=== PATIENT | male | born 1960 ===

== ENCOUNTER 2021-10-21 11:11 | Inpatient (IN) | payer MEDICAID ==
[2021-10-21] MEDS ORDERED: MELATONIN 5 MG TAB PO PRN (20:37)
[2021-10-21] MEDS: GABAPENTIN 300 MG CAP PO SCH ×2 (22:07→22:08)
[2021-10-21] MEDS: traZODone 50 MG TAB PO SCH (22:08)
[2021-10-21 23:15] LABS: Basophils % (Auto) 0.4 % (0.0-1.8); Eosinophils % (Auto) 0.7 % (0.0-4.3); Hematocrit 40.2 % (35.5-45.6); Hemoglobin 13.6 gm/dl (11.8-15.2); Lymphocytes # (Auto) 0.8 K/mm3 (1.2-5.4); Lymphocytes % (Auto) 17.1 % (13.4-35.0); Mean Corpuscular HGB Conc 34 % (32-34); Mean Corpuscular Volume 105 fl (84-94); Monocytes # (Auto) 0.6 K/mm3 (0.0-0.8); Monocytes % (Auto) 13.2 % (0.0-7.3); Platelet Count 201 K/mm3 (140-440); Red Blood Count 3.82 M/mm3 (3.65-5.03); Red Cell Distribution Width 15.7 % (13.2-15.2)
[2021-10-21 23:40] LABS: Alanine Aminotransferase 22 units/L (7-56); Albumin 4.2 g/dL (3.9-5); BUN/Creatinine Ratio 23; Blood Urea Nitrogen 23 mg/dL (9-20); Calcium 9.7 mg/dL (8.4-10.2); Chol/HDL Ratio 2.08 %; HDL Cholesterol 91 mg/dL (40-59); Hemolysis Index 3; LDL Cholesterol,Direct 87 mg/dL (50-130)
[2021-10-22] MEDS: GABAPENTIN 300 MG CAP PO SCH ×3 (08:26→21:51)
--- NOTE | 2021-10-22 08:49 | History and Physical Report ---
GP History & Physical - History of Present Illness Date of admission: 10/21/21 Date of Examination: 10/22/21 Reason for Admission: Danger to self, Failure of Outpatient Treatment, Severe anxiety/depression History of Present Illness: HPI: Per report pt present to ER with c/o of LT side chest pain and increased depression, ETOH abuse and SI with plan to get a gun and shot himself. The patient was seen today. He is calm and cooperative. He says he was admitted for "saying something stupid that I didn't think they would take seriously." The patient says he needed pain medication and told them he might as well shoot himself. He says "I would never do that and have never thought about doing anything like that." He does report depression at times. He denies any psych history in the past or being on any psych meds. He says he drinks about 2 - 24 ox of beer daily. The patient denies any illicit drug use. He says he was homeless for two weeks, but now has a roof over his head. The patient says he lives with [place] people and has home health. He says "they are nicer to me than my family." The patient says he has to be in [employer] on the 28 of [place]. He says "If I don't go they will put out a Bench Warrant." He denies hallucinations. PAST PSYCHIATRIC HISTORY: Diagnoses: Denies Suicide attempts or Self-harm behavior: Denies Prior psychiatric hospitalizations: Denies Substance Abuse history: alcohol Previous psychiatric medications tried: Denies Outpatient treatment: Denies PAST MEDICAL HISTORY: None reported Family Psychiatric History: None reported or documented SOCIAL HISTORY Marital Status: Living Arrangements: with another family Employment Status: Disabled Access to guns/weapons: Denies Education: History of Abuse: Denies Legal History: Denies REVIEW OF SYSTEMS Constitutional: Negative for weight loss ENT: Negative for stridor Respiratory: Negative for cough or hemoptysis All other systems reviewed and are negative MENTAL STATUS EXAMINATION General Appearance and Behavior: Age appropriate, wearing appropriate clothes, cooperative, polite with questioning, good eye contact Cooperation: cooperative Psychomotor Behavior: Psychomotor normal Mood: Depressed Affect and affective range: congruent with stated affect Thought Process: goal directed Thought Content: None Speech: Normal volume, Regular rate and rhythm Suicidal Ideation: Denies Homicidal Ideation: Denies Hallucination: Denies Delusions: None elicited Impulse Control: Limited Insight and Judgment: Limited Memory: Intact Attention: attentive Orientation: Alert and oriented Diagnoses: Major Depressive Disorder Alcohol Dependence Treatment Plan Patient admitted for inpatient psychiatric evaluation, medication adjustment and close monitoring The patient's behavior, mood, sleep and appetite will be closely monitored. Patient enrolled in individual and group therapeutic sessions and encouraged to attend. Patient provided with a safe and structured environment. Patient's physical health needs will be addressed by the Hospitalist. Hospitalist Consulted Labs including CBC, CMP, Lipid profile and Hemoglobin A1C levels ordered for baseline reference Social Assessment will be completed and the Pit Recorder will work with patient and family to ensure a suitable and safe disposition Medication adjustment will be made as clinically indicated Lexapro 5mg po daily Trazodone 50mg po qhs Folic 1mg po daily Multivit daily CIWA Usual Wellness [facility] The patient agreed on the treatment plan, understood the risk, benefit, alternative treatment, potential consequence of no treatment, and gave informed consent. Estimated days: 7 Post hospital care: primary care provider, psychiatric provider Case staffed with Dr. Bermudez Legal Status: Voluntary Reaction to Hospitalization: Accepting Medications and Allergies Allergies Allergy/AdvReac Type Severity Reaction Status Date / Time No Known Allergies Allergy Unverified 10/21/21 11:37 Home Medications Medication Instructions Recorded Confirmed Last Taken Type Gabapentin [Neurontin] 600 mg PO TID 10/21/21 10/21/21 Unknown History Melatonin [Melatonin 1MG TAB] 1 mg PO QHS 10/21/21 10/21/21 Unknown History amLODIPine [Norvasc] 10 mg PO DAILY 10/21/21 10/21/21 Unknown History Active Meds: Active Medications Gabapentin (Gabapentin 300 Mg Cap) 600 mg PO TID [facility] Last Admin: 10/22/21 08:26 Dose: 600 mg Melatonin (Melatonin 5 Mg Tab) 5 mg PO QHS PRN PRN Reason: Sleep Trazodone HCl (Trazodone 50 Mg Tab) 50 mg PO QHS [facility] Last Admin: 10/21/21 22:08 Dose: 50 mg Results - Results Labs/Vitals: Laboratory Last Values WBC 4.5 K/mm3 (4.5-11.0) 10/21/21 22:38 RBC 3.82 M/mm3 (3.65-5.03) 10/21/21 22:38 Hgb 13.6 gm/dl (11.8-15.2) 10/21/21:38 Hct 40.2 % (35.5-45.6) 10/21/21 22: MCV 105 fl (84-94) H 10/21/21 22:38 MCH 36 pg (28-32) H 10/21/21: MCHC 34 % (32-34) 10/21/21: RDW 15.7 % (13.2-15.2) H 10/21/21 22:38 Plt Count 201 K/mm3 (140-440) 10/21/21: Lymph % (Auto) 17.1 % (13.4-35.0) 10/21/21: [place] % (Auto) 13.2 % (0.0-7.3) H 10/21/21: Eos % (Auto) 0.7 % (0.0-4.3) 10/21/21: Baso % (Auto) 0.4 % (0.0-1.8) 10/21/21: Lymph # (Auto) 0.8 K/mm3 (1.2-5.4) L 10/21/21: [place] # (Auto) 0.6 K/mm3 (0.0-0.8) 10/21/21: Eos # (Auto) 0.0 K/mm3 (0.0-0.4) 10/21/21: Baso # (Auto) 0.0 K/mm3 (0.0-0.1) 10/21/21 22: Seg Neutrophils % 68.6 % (40.0-70.0) 10/21/21: Seg Neutrophils # 3.1 K/mm3 (1.8-7.7) 10/21/21 22:38 Sodium 136 mmol/L (137-145) L 10/21/21: Potassium 4.0 mmol/L (3.6-5.0) 10/21/21 22: Chloride 95.9 mmol/L (98-107) L 10/21/21: Carbon Dioxide 28 mmol/L (22-30) 10/21/21 22:38 Anion Gap 16 mmol/L 10/21/21 22:38 BUN 23 mg/dL (9-20) H 10/21/21 22:38 Creatinine 1.0 mg/dL (0.8-1.3) 10/21/21 22:38 Estimated GFR > 60 ml/min 10/21/21 22:38 BUN/Creatinine Ratio 23 % 10/21/21 22:38 Glucose 93 mg/dL (75-100) 10/21/21 22:38 Hemoglobin A1c 4.9 % (4-6) 10/21/21 22:38 Calcium 9.7 mg/dL (8.4-10.2) 10/21/21 22:38 Total Bilirubin 1.00 mg/dL (0.1-1.2) 10/21/21 22:38 AST 42 units/L (5-40) H 10/21/21 22:38 ALT 22 units/L (7-56) 10/21/21 22:38 Alkaline Phosphatase 260 units/L (35-129) H 10/21/21 22:38 Total Protein 7.1 g/dL (6.3-8.2) 10/21/21 22:38 Albumin 4.2 g/dL (3.9-5) 10/21/21 22:38 Albumin/Globulin Ratio 1.4 % 10/21/21 22:38 Triglycerides 88 mg/dL (2-149) 10/21/21 22:38 Cholesterol 190 mg/dL (50-199) 10/21/21 22:38 LDL Cholesterol Direct 87 mg/dL (50-130) 10/21/21 22:38 HDL Cholesterol 91 mg/dL (40-59) H 10/21/21 22:38 Cholesterol/HDL Ratio 2.08 % 10/21/21 22:38 TSH 3.450 mlU/mL (0.270-4.200) 10/21/21 22:38 Last Vital Signs Temp 97.6 F 10/22/21 07:54 Pulse 84 10/22/21 07:54 Resp 18 10/22/21 07:54 BP 110/83 10/22/21 07:54 Pulse Ox 99 10/22/21 07:54 Physical Examination - Constitutional Vitals: Vital Signs Temp Pulse Resp BP Pulse Ox 97.6 F 84 18 110/83 99 10/22/21 07:54 09/13/22 07:54 10/22/21 07:54 10/22/21 07:54 10/22/21 07:54 Temperature -Last 24 Hours Temperature 97.6 F Temperature 97.9 F Temperature 98.3 F Mental Status Exam - Vital signs Last Vital Signs Temp 97.6 F 10/22/21 07:54 Pulse 84 10/22/21 07:54 Resp 18 10/22/21 07:54 BP 110/83 10/22/21 07:54 Pulse Ox 99 10/22/21 07:54 Physician Certification - Certification Statement Physician Certification Statement: This is an acknowledgement statement that EMANUEL KEN is a 61 year old M who requires inpatient psychiatric admission for treatment which could reasonably be expected to improve the patient's condition for Estimated period of time patient will need to remain in the hospital: [ ] Plan for post-hospital care: [ ]
[2021-10-22] MEDS: amLODIPine 10 MG TAB PO SCH (10:05)
[2021-10-22] MEDS: ESCITALOPRAM 10 MG TAB PO SCH (10:06)
--- NOTE | 2021-10-22 10:59 | Consultation ---
History of Present Illness - Reason for Consult Consult date: 10/22/21 Medical Management Requesting physician: ANKIT HINSON - History of Present Illness 61 YO Male with Vascular Dementia with Behavioral Disturbance, Cerebral Atherosclerosis, Bipolar Disorder, HTN, DM, BPH, Mild Intermittent Asthma, Schizophrenia, PTSD admitted to [facility] for psychiatric stabilization. Consult placed by Dr. Hinson for medical management. Pt seen and evaluated in the recreation room. Patient appears to be at baseline level of cognition and function. Medications and Allergies Allergies Allergy/AdvReac Type Severity Reaction Status Date / Time No Known Allergies Allergy Unverified 10/21/21 11:37 Home Medications Medication Instructions Recorded Confirmed Last Taken Type Gabapentin [Neurontin] 600 mg PO TID 10/21/21 10/21/21 Unknown History Melatonin [Melatonin 1MG TAB] 1 mg PO QHS 10/21/21 10/21/21 Unknown History amLODIPine [Norvasc] 10 mg PO DAILY 10/21/21 10/21/21 Unknown History Active Meds: Active Medications Amlodipine Besylate (Amlodipine 10 Mg Tab) 10 mg PO DAILY [facility] Last Admin: 10/22/21 10:05 Dose: 10 mg Escitalopram Oxalate (Escitalopram 10 Mg Tab) 5 mg PO QDAY [facility] Last Admin: 10/22/21 10:06 Dose: 5 mg Gabapentin (Gabapentin 300 Mg Cap) 600 mg PO TID [facility] Last Admin: 10/22/21 08:26 Dose: 600 mg Melatonin (Melatonin 5 Mg Tab) 5 mg PO QHS PRN PRN Reason: Sleep Trazodone HCl (Trazodone 50 Mg Tab) 50 mg PO QHS [facility] Last Admin: 10/21/21 22:08 Dose: 50 mg Exam - Constitutional Vitals: Temp Pulse Resp BP Pulse Ox 97.6 F 84 18 110/83 99 10/22/21 07:54 10/22/21 10:05 10/22/21 07:54 10/22/21 10:05 10/22/21 07:54 Results - Labs CBC & Chem 7: 10/21/21 22:38 10/21/21 22:38 Labs: Abnormal lab results 10/21/21 10/21/21 Range/Units 22:38 22:38 MCV 105 H (84-94) fl MCH 36 H (28-32) pg RDW 15.7 H (13.2-15.2) % [place] % (Auto) 13.2 H (0.0-7.3) % Lymph # (Auto) 0.8 L (1.2-5.4) K/mm3 Sodium 136 L (137-145) mmol/L Chloride 95.9 L (98-107) mmol/L BUN 23 H (9-20) mg/dL AST 42 H (5-40) units/L Alkaline Phosphatase 260 H (35-129) units/L HDL Cholesterol 91 H (40-59) mg/dL
[2021-10-22] MEDS ORDERED: NON-FORMULARY EACH (Gabapentin [Neurontin] 600 MG Tablet) PO SCH (14:00)
[2021-10-22] MEDS: traZODone 50 MG TAB PO SCH (21:50)
[2021-10-22] MEDS ORDERED: MELATONIN 1 MG PO SCH (22:00)
[2021-10-23] MEDS: GABAPENTIN 300 MG CAP PO SCH ×3 (09:10→20:24)
[2021-10-23] MEDS: amLODIPine 10 MG TAB PO SCH (10:11)
[2021-10-23] MEDS: ESCITALOPRAM 10 MG TAB PO SCH (10:11)
--- NOTE | 2021-10-23 10:59 | Progress Note ---
Subjective Date of service: 10/23/21 Principal diagnosis: MDD, alcohol dependence Subjective Comment: The patient was seen today. He is complaining of neuropathy in his legs. He says mentally he feels okay. He denies SI/HI or hallucinations. REVIEW OF SYSTEMS Constitutional: Negative for weight loss ENT: Negative for stridor Respiratory: Negative for cough or hemoptysis All other systems reviewed and are negative MENTAL STATUS EXAMINATION General Appearance and Behavior: Age appropriate, wearing appropriate clothes, cooperative, polite with questioning, good eye contact Cooperation: cooperative Psychomotor Behavior: Psychomotor normal Mood: Depressed Affect and affective range: congruent with stated affect Thought Process: goal directed Thought Content: None Speech: Normal volume, Regular rate and rhythm Suicidal Ideation: Denies Homicidal Ideation: Denies Hallucination: Denies Delusions: None elicited Impulse Control: Limited Insight and Judgment: Limited Memory: Intact Attention: attentive Orientation: Alert and oriented Diagnoses: Major Depressive Disorder Alcohol Dependence Treatment Plan Patient admitted for inpatient psychiatric evaluation, medication adjustment and close monitoring The patient's behavior, mood, sleep and appetite will be closely monitored. Patient enrolled in individual and group therapeutic sessions and encouraged to attend. Patient provided with a safe and structured environment. Patient's physical health needs will be addressed by the Hospitalist. Hospitalist Consulted Labs including CBC, CMP, Lipid profile and Hemoglobin A1C levels ordered for baseline reference Social Assessment will be completed and the Fast Food Cashier will work with patient and family to ensure a suitable and safe disposition Medication adjustment will be made as clinically indicated Continue medications Usual Wellness [facility] The patient agreed on the treatment plan, understood the risk, benefit, altern ative treatment, potential consequence of no treatment, and gave informed consent. Estimated days: 7 Post hospital care: primary care provider, psychiatric provider Case staffed with Dr. Bermudez Medications and Allergies Allergies Allergy/AdvReac Type Severity Reaction Status Date / Time No Known Allergies Allergy Unverified 10/21/21 11:37 Home Medications Medication Instructions Recorded Confirmed Last Taken Type Gabapentin [Neurontin] 600 mg PO TID 10/21/21 10/21/21 Unknown History Melatonin [Melatonin 1MG TAB] 1 mg PO QHS 10/21/21 10/21/21 Unknown History amLODIPine [Norvasc] 10 mg PO DAILY 10/21/21 10/21/21 Unknown History Active Meds: Active Medications Amlodipine Besylate (Amlodipine 10 Mg Tab) 10 mg PO DAILY [facility] Last Admin: 10/23/21 10:11 Dose: 10 mg Escitalopram Oxalate (Escitalopram 10 Mg Tab) 5 mg PO QDAY [facility] Last Admin: 10/23/21 10:11 Dose: 5 mg Gabapentin (Gabapentin 300 Mg Cap) 600 mg PO TID [facility] Last Admin: 10/23/21 09:10 Dose: 600 mg Melatonin (Melatonin 5 Mg Tab) 5 mg PO QHS PRN PRN Reason: Sleep Trazodone HCl (Trazodone 50 Mg Tab) 50 mg PO QHS [facility] Last Admin: 10/22/21 21:50 Dose: 50 mg Results - Results Labs/Vitals: Laboratory Last Values WBC 4.5 K/mm3 (4.5-11.0) 10/21/21 22:38 RBC 3.82 M/mm3 (3.65-5.03) 10/21/21 22:38 Hgb 13.6 gm/dl (11.8-15.2) 10/21/21 22:38 Hct 40.2 % (35.5-45.6) 10/21/21 22:38 MCV 105 fl (84-94) H 10/21/21 22:38 MCH 36 pg (28-32) H 10/21/21 22:38 MCHC 34 % (32-34) 10/21/21 22:38 RDW 15.7 % (13.2-15.2) H 10/21/21 22:38 Plt Count 201 K/mm3 (140-440) 10/21/21 22:38 Lymph % (Auto) 17.1 % (13.4-35.0) 10/21/21 22:38 [place] % (Auto) 13.2 % (0.0-7.3) H 10/21/21 22:38 Eos % (Auto) 0.7 % (0.0-4.3) 10/21/21 22:38 Baso % (Auto) 0.4 % (0.0-1.8) 10/21/21 22:38 Lymph # (Auto) 0.8 K/mm3 (1.2-5.4) L 10/21/21 22:38 [place] # (Auto) 0.6 K/mm3 (0.0-0.8) 10/21/21 22:38 Eos # (Auto) 0.0 K/mm3 (0.0-0.4) 10/21/21 22:38 Baso # (Auto) 0.0 K/mm3 (0.0-0.1) 10/21/21 22:38 Seg Neutrophils % 68.6 % (40.0-70.0) 10/21/21 22:38 Seg Neutrophils # 3.1 K/mm3 (1.8-7.7) 10/21/21 22:38 Sodium 136 mmol/L (137-145) L 10/21/21 22:38 Potassium 4.0 mmol/L (3.6-5.0) 10/21/21 22:38 Chloride 95.9 mmol/L (98-107) L 10/21/21 22:38 Carbon Dioxide 28 mmol/L (22-30) 10/21/21 22:38 Anion Gap 16 mmol/L 10/21/21 22:38 BUN 23 mg/dL (9-20) H 10/21/21 22:38 Creatinine 1.0 mg/dL (0.8-1.3) 10/21/21 22:38 Estimated GFR > 60 ml/min 10/21/21 22:38 BUN/Creatinine Ratio 23 % 10/21/21 22:38 Glucose 93 mg/dL (75-100) 10/21/21 22:38 Hemoglobin A1c 4.9 % (4-6) 10/21/21 22:38 Calcium 9.7 mg/dL (8.4-10.2) 10/21/21 22:38 Total Bilirubin 1.00 mg/dL (0.1-1.2) 10/21/21 22:38 AST 42 units/L (5-40) H 10/21/21 22:38 ALT 22 units/L (7-56) 10/21/21 22:38 Alkaline Phosphatase 260 units/L (35-129) H 10/21/21 22:38 Total Protein 7.1 g/dL (6.3-8.2) 10/21/21 22:38 Albumin 4.2 g/dL (3.9-5) 10/21/21 22:38 Albumin/Globulin Ratio 1.4 % 10/21/21 22:38 Triglycerides 88 mg/dL (2-149) 10/21/21 22:38 Cholesterol 190 mg/dL (50-199) 10/21/21 22:38 LDL Cholesterol Direct 87 mg/dL (50-130) 10/21/21 22:38 HDL Cholesterol 91 mg/dL (40-59) H 10/21/21 22:38 Cholesterol/HDL Ratio 2.08 % 10/21/21 22:38 TSH 3.450 mlU/mL (0.270-4.200) 10/21/21 22:38 Last Vital Signs Temp 98.5 F 10/22/21 19:45 Pulse 54 L 10/23/21 10:11 Resp 18 10/22/21 19:45 BP 136/78 10/23/21 10:11 Pulse Ox 97 10/22/21 19:45
[2021-10-23] MEDS: traZODone 50 MG TAB PO SCH (21:25)
[2021-10-24] MEDS: GABAPENTIN 300 MG CAP PO SCH ×3 (10:33→21:25)
[2021-10-24] MEDS: ESCITALOPRAM 10 MG TAB PO SCH (10:34)
[2021-10-24] MEDS: amLODIPine 10 MG TAB PO SCH (10:35)
--- NOTE | 2021-10-24 11:56 | Progress Note ---
Subjective Date of service: 10/24/21 Principal diagnosis: MDD, alcohol dependence Subjective Comment: The patient was seen today. He says he is doing okay. The patient says he slept well and his appetite is good. He denies SI/HI or hallucinations. THe patient will discharge tomorrow if night uneventful. Staff says the patient is complaining of leg pain and would like tylenol or Ibuprofen. REVIEW OF SYSTEMS Constitutional: Negative for weight loss ENT: Negative for stridor Respiratory: Negative for cough or hemoptysis All other systems reviewed and are negative MENTAL STATUS EXAMINATION General Appearance and Behavior: Age appropriate, wearing appropriate clothes, cooperative, polite with questioning, good eye contact Cooperation: cooperative Psychomotor Behavior: Psychomotor normal Mood: Depressed Affect and affective range: congruent with stated affect Thought Process: goal directed Thought Content: None Speech: Normal volume, Regular rate and rhythm Suicidal Ideation: Denies Homicidal Ideation: Denies Hallucination: Denies Delusions: None elicited Impulse Control: Limited Insight and Judgment: Limited Memory: Intact Attention: attentive Orientation: Alert and oriented Diagnoses: Major Depressive Disorder Alcohol Dependence Treatment Plan Patient admitted for inpatient psychiatric evaluation, medication adjustment and close monitoring The patient's behavior, mood, sleep and appetite will be closely monitored. Patient enrolled in individual and group therapeutic sessions and encouraged to attend. Patient provided with a safe and structured environment. Patient's physical health needs will be addressed by the Hospitalist. Hospitalist Consulted Labs including CBC, CMP, Lipid profile and Hemoglobin A1C levels ordered for baseline reference Social Assessment will be completed and the Liner Roll Changer will work with patient and family to ensure a suitable and safe disposition Medication adjustment will be made as clinically indicated Tylenol 650mg po qhs prn mild pain Usual Wellness [place]/[facility] The patient agreed on the treatment plan, understood the risk, benefit, alternative treatment, potential consequence of no treatment, and gave informed consent. Estimated days: 7 Post hospital care: primary care provider, psychiatric provider Case staffed with Dr. Bermudez Medications and Allergies Allergies Allergy/AdvReac Type Severity Reaction Status Date / Time No Known Allergies Allergy Unverified 10/21/21 11:37 Home Medications Medication Instructions Recorded Confirmed Last Taken Type Gabapentin [Neurontin] 600 mg PO TID 10/21/21 10/21/21 Unknown History Melatonin [Melatonin 1MG TAB] 1 mg PO QHS 10/21/21 10/21/21 Unknown History amLODIPine [Norvasc] 10 mg PO DAILY 10/21/21 10/21/21 Unknown History Active Meds: Active Medications Amlodipine Besylate (Amlodipine 10 Mg Tab) 10 mg PO DAILY [facility] Last Admin: 10/24/21 10:35 Dose: 10 mg Escitalopram Oxalate (Escitalopram 10 Mg Tab) 5 mg PO QDAY [facility] Last Admin: 10/24/21 10:34 Dose: 5 mg Gabapentin (Gabapentin 300 Mg Cap) 600 mg PO TID [facility] Last Admin: 10/24/21 10:33 Dose: 600 mg Melatonin (Melatonin 5 Mg Tab) 5 mg PO QHS PRN PRN Reason: Sleep Trazodone HCl (Trazodone 50 Mg Tab) 50 mg PO QHS [facility] Last Admin: 10/23/21 21:25 Dose: 50 mg Results - Results Labs/Vitals: Laboratory Last Values WBC 4.5 K/mm3 (4.5-11.0) 10/21/21 22:38 RBC 3.82 M/mm3 (3.65-5.03) 10/21/21 22:38 Hgb 13.6 gm/dl (11.8-15.2) 10/21/21 22:38 Hct 40.2 % (35.5-45.6) 10/21/21 22:38 MCV 105 fl (84-94) H 10/21/21 22:38 MCH 36 pg (28-32) H 10/21/21 22:38 MCHC 34 % (32-34) 10/21/21 22:38 RDW 15.7 % (13.2-15.2) H 10/21/21 22:38 Plt Count 201 K/mm3 (140-440) 10/21/21 22:38 Lymph % (Auto) 17.1 % (13.4-35.0) 10/21/21 22:38 [place] % (Auto) 13.2 % (0.0-7.3) H 10/21/21 22:38 Eos % (Auto) 0.7 % (0.0-4.3) 10/21/21 22:38 Baso % (Auto) 0.4 % (0.0-1.8) 10/21/21 22:38 Lymph # (Auto) 0.8 K/mm3 (1.2-5.4) L 10/21/21 22:38 [place] # (Auto) 0.6 K/mm3 (0.0-0.8) 10/21/21 22:38 Eos # (Auto) 0.0 K/mm3 (0.0-0.4) 10/21/21 22:38 Baso # (Auto) 0.0 K/mm3 (0.0-0.1) 10/21/21 22:38 Seg Neutrophils % 68.6 % (40.0-70.0) 10/21/21 22:38 Seg Neutrophils # 3.1 K/mm3 (1.8-7.7) 10/21/21 22:38 Sodium 136 mmol/L (137-145) L 10/21/21 22:38 Potassium 4.0 mmol/L (3.6-5.0) 10/21/21 22:38 Chloride 95.9 mmol/L (98-107) L 10/21/21 22:38 Carbon Dioxide 28 mmol/L (22-30) 10/21/21 22:38 Anion Gap 16 mmol/L 10/21/21 22:38 BUN 23 mg/dL (9-20) H 10/21/21 22:38 Creatinine 1.0 mg/dL (0.8-1.3) 10/21/21 22:38 Estimated GFR > 60 ml/min 10/21/21 22:38 BUN/Creatinine Ratio 23 % 10/21/21 22:38 Glucose 93 mg/dL (75-100) 10/21/21 22:38 Hemoglobin A1c 4.9 % (4-6) 10/21/21 22:38 Calcium 9.7 mg/dL (8.4-10.2) 10/21/21 22:38 Total Bilirubin 1.00 mg/dL (0.1-1.2) 10/21/21 22:38 AST 42 units/L (5-40) H 10/21/21 22:38 ALT 22 units/L (7-56) 10/21/21 22:38 Alkaline Phosphatase 260 units/L (35-129) H 10/21/21 22:38 Total Protein 7.1 g/dL (6.3-8.2) 10/21/21 22:38 Albumin 4.2 g/dL (3.9-5) 10/21/21 22:38 Albumin/Globulin Ratio 1.4 % 10/21/21 22:38 Triglycerides 88 mg/dL (2-149) 10/21/21 22:38 Cholesterol 190 mg/dL (50-199) 10/21/21 22:38 LDL Cholesterol Direct 87 mg/dL (50-130) 10/21/21 22:38 HDL Cholesterol 91 mg/dL (40-59) H 10/21/21 22:38 Cholesterol/HDL Ratio 2.08 % 10/21/21 22:38 TSH 3.450 mlU/mL (0.270-4.200) 10/21/21 22:38 Last Vital Signs Temp 97.7 F 10/24/21 06:52 Pulse 61 10/24/21 10:35 Resp 18 10/24/21 06:52 BP 134/81 10/24/21 10:35 Pulse Ox 100 10/24/21 06:52
[2021-10-24] MEDS ORDERED: ACETAMINOPHEN 325 MG TAB PO PRN (13:00)
[2021-10-24] MEDS: traZODone 50 MG TAB PO SCH (21:25)
[2021-10-25] MEDS: GABAPENTIN 300 MG CAP PO SCH (08:22)
[2021-10-25 09:24] VITALS: BP 149/98
[2021-10-25] MEDS: amLODIPine 10 MG TAB PO SCH (09:24)
[2021-10-25] MEDS: ESCITALOPRAM 10 MG TAB PO SCH (09:29)
--- NOTE | 2021-10-25 11:24 | Discharge Summary ---
Providers - Providers Date of Admission: 10/21/21 16:30 Date of discharge: 10/25/21 Attending physician: ANKIT HINSON MD 10/21/21 11:31 Consult to Physician [CONS] Routine Comment: Consulting Provider: EDISON TAVARES Physician Instructions: Reason For Exam: manage medical conditions 10/23/21 15:59 Physical Therapy Evaluation and Treat [CONS] Stat Comment: Reason For Exam: weakness/unsteady gait 10/23/21 16:09 Occupational Therapy Evaluate and Treat [CONS] Stat Comment: Reason For Exam: assess /improve independence Primary care physician: NETWORKING TECHNICIAN Hospitalization Reason for admission: Danger to self, Failure of Outpatient Treatment, Severe anxiety/depression Condition: Stable Hospital course: The patient was provided inpatient psychiatric treatment with safe and supportive care, medication adjustment, adverse effect monitoring, medical evaluations, medical treatments, assessment and psycho-education. The patient's mood, cognition, behavior, moral support are improved and stabilized. At the time of discharge, the patient had no endangering behavior and no debilitating adverse effects. The patient agreed on potential consequences of no treatment and gave informed consent. 10/25: The patient was seen today. He says he is doing okay. He reports "alr ight," sleep and his appetite is good. He denies depressive sx or anxiety. Patient denies SI HI AVH. Patient reports constant numbness and intermittent pain in both legs d/t history of bilateral hip and right knee surgery. 10/24: The patient was seen today. He says he is doing okay. The patient says he slept well and his appetite is good. He denies SI/HI or hallucinations. THe patient will discharge tomorrow if night uneventful. Staff says the patient is complaining of leg pain and would like tylenol or Ibuprofen. 10/23: The patient was seen today. He is complaining of neuropathy in his legs. He says mentally he feels okay. He denies SI/HI or hallucinations. 10/22: The patient was seen today. He is calm and cooperative. He says he was admitted for "saying something stupid that I didn't think they would take seriously." The patient says he needed pain medication and told them he might as well shoot himself. He says "I would never do that and have never thought about doing anything like that." He does report depression at times. He denies any psych history in the past or being on any psych meds. He says he drinks about 2 - 24 ox of beer daily. The patient denies any illicit drug use. He says he was homeless for two weeks, but now has a roof over his head. The patient says he lives with [place] people and has home health. He says "they are nicer to me than my family." The patient says he has to be [place] [employer] on the 28 of [place]. He says "If I don't go they will put out a Bench Warrant." He denies hallucinations. Disposition: HOME / SELF CARE / HOMELESS Time spent for discharge: 35 Allergies/Adverse Reactions: Allergies No Known Allergies Allergy (Unverified 10/21/21 11:37) Vital Signs: Last Vital Signs Temp 98.0 F 10/25/21 07:14 Pulse 82 10/25/21 09:24 Resp 18 10/25/21 07:14 BP 149/98 10/25/21 09:24 Pulse Ox 99 10/25/21 07:14 Last Lab: Laboratory Last Values WBC 4.5 K/mm3 (4.5-11.0) 10/21/21 22:38 RBC 3.82 M/mm3 (3.65-5.03) 10/21/21 22:38 Hgb 13.6 gm/dl (11.8-15.2) 10/21/21 22:38 Hct 40.2 % (35.5-45.6) 10/21/21 22:38 MCV 105 fl (84-94) H 10/21/21 22:38 MCH 36 pg (28-32) H 10/21/21 22:38 MCHC 34 % (32-34) 10/21/21 22:38 RDW 15.7 % (13.2-15.2) H 10/21/21 22:38 Plt Count 201 K/mm3 (140-440) 10/21/21 22:38 Lymph % (Auto) 17.1 % (13.4-35.0) 10/21/21 22:38 [place] % (Auto) 13.2 % (0.0-7.3) H 10/21/21 22:38 Eos % (Auto) 0.7 % (0.0-4.3) 10/21/21 22:38 Baso % (Auto) 0.4 % (0.0-1.8) 10/21/21 22:38 Lymph # (Auto) 0.8 K/mm3 (1.2-5.4) L 10/21/21 22:38 [place] # (Auto) 0.6 K/mm3 (0.0-0.8) 10/21/21 22:38 Eos # (Auto) 0.0 K/mm3 (0.0-0.4) 10/21/21 22:38 Baso # (Auto) 0.0 K/mm3 (0.0-0.1) 10/21/21 22:38 Seg Neutrophils % 68.6 % (40.0-70.0) 10/21/21 22:38 Seg Neutrophils # 3.1 K/mm3 (1.8-7.7) 10/21/21 22:38 Sodium 136 mmol/L (137-145) L 10/21/21 22:38 Potassium 4.0 mmol/L (3.6-5.0) 10/21/21 22:38 Chloride 95.9 mmol/L (98-107) L 10/21/21 22:38 Carbon Dioxide 28 mmol/L (22-30) 10/21/21 22:38 Anion Gap 16 mmol/L 10/21/21 22:38 BUN 23 mg/dL (9-20) H 10/21/21 22:38 Creatinine 1.0 mg/dL (0.8-1.3) 10/21/21 22:38 Estimated GFR > 60 ml/min 10/21/21 22:38 BUN/Creatinine Ratio 23 % 10/21/21 22:38 Glucose 93 mg/dL (75-100) 10/21/21 22:38 Hemoglobin A1c 4.9 % (4-6) 10/21/21 22:38 Calcium 9.7 mg/dL (8.4-10.2) 10/21/21 22:38 Total Bilirubin 1.00 mg/dL (0.1-1.2) 10/21/21 22:38 AST 42 units/L (5-40) H 10/21/21 22:38 ALT 22 units/L (7-56) 10/21/21 22:38 Alkaline Phosphatase 260 units/L (35-129) H 10/21/21 22:38 Total Protein 7.1 g/dL (6.3-8.2) 10/21/21 22:38 Albumin 4.2 g/dL (3.9-5) 10/21/21 22:38 Albumin/Globulin Ratio 1.4 % 10/21/21 22:38 Triglycerides 88 mg/dL (2-149) 10/21/21 22:38 Cholesterol 190 mg/dL (50-199) 10/21/21 22:38 LDL Cholesterol Direct 87 mg/dL (50-130) 10/21/21 22:38 HDL Cholesterol 91 mg/dL (40-59) H 10/21/21 22:38 Cholesterol/HDL Ratio 2.08 % 10/21/21 22:38 TSH 3.450 mlU/mL (0.270-4.200) 10/21/21 22:38 - Discharge Diagnoses (1) Major depressive disorder Status: Acute Qualifiers: Major depression recurrence: recurrent (2) Alcohol dependence Status: Suspected Core Measure Documentation - Palliative Care Palliative Care/ Comfort Measures: Not Applicable - Core Measures Any of the following diagnoses?: none Exam - Constitutional Vitals: Temp Pulse Resp BP Pulse Ox 98.0 F 82 18 149/98 99 10/25/21 07:14 10/25/21 09:24 10/25/21 07:14 10/25/21 09:24 10/25/21 07:14 General appearance: Present: no acute distress - EENT Eyes: Present: PERRL ENT: hearing intact - Respiratory Respiratory effort: normal Respiratory: bilateral: CTA Plan Activity: advance as tolerated Weight Bearing Status: Weight Bear as Tolerated Diet: regular Care Plan Goals: Maintain good and stable mental health Plan of Treatment: The patient should be compliant with medications, not to use drugs, and not to drink alcohol. The patient understands that if suicidal ideas, homicidal ideas or any endangering feeling arise, the patient should seek assistance including, but not limited to crisis hotline, and emergency room. Assessment: MDD, Alcohol dependence Follow up with: PRIMARY CARE, [Primary Care Provider] - 7 Days Prescriptions: traZODone [Desyrel] 50 mg PO QHS #30 tablet Melatonin [Melatonin 5MG TAB] 5 mg PO QHS PRN #30 tablet PRN Reason: Sleep Escitalopram [Lexapro] 5 mg PO QDAY #60 tablet
== END 2021-10-25 13:06 | disposition home or self-care (01) | DRG 885 ==
LOC: 3A 11:11 → UNDOADMIN 11:11 → 5A 16:30
PROVIDERS: ADMIT Psychiatry & Neurology Psychiatry; ATTEND Psychiatry & Neurology Psychiatry
DX: F33.9 Major depressive disorder, recurrent, unspecified (principal); F10.20 Alcohol dependence, uncomplicated; Y90.9 Presence of alcohol in blood, level not specified; F01.51 Vascular dementia, unspecified severity, with behavioral disturbance; I67.2 Cerebral atherosclerosis; I10 Essential (primary) hypertension; E11.9 Type 2 diabetes mellitus without complications; N40.0 Benign prostatic hyperplasia without lower urinary tract symptoms; J45.20 Mild intermittent asthma, uncomplicated; F43.10 Post-traumatic stress disorder, unspecified
CPT/HCPCS: 36415; 80053; 80061; 83036; 84443; 85025; G0378